=== PATIENT | male | born 1965 | race Caucasian/White ===

== ENCOUNTER 2016-12-28 11:19 | Emergency (ER) | payer BC ==
[2016-12-28 12:01] VITALS: BP 126/74; PULSE 78; RESP 18; TEMP 98; O2SAT 97
--- NOTE | 2016-12-28 12:18 | UCPHY ---
H & P Time Seen by Provider: 12/28/16 11:43 Patient Type: New HPI/ROS: CHIEF COMPLAINT: Sinus congestion, cough, blood in stools HISTORY OF PRESENT ILLNESS: This is a 51-year-old male presents with 2 primary complaints. Patient has been sick for several days with sinus congestion, headache, nasal congestion, runny nose, cough. He states he develops sinus infections quite frequently. No fever. No chest pain or shortness of breath. No ear pain. This morning, he noted blood in his stools. He has had 4 bowel movements this morning, 1st to with blood in the stool and 1 time when he wiped. Last 2 bowel movements were without any blood. Does have a history of diverticulosis as well as a history of diverticulitis and a history of hemorrhoids. He has had no abdominal pain. No vomiting. Feels like his bloody stools may be related to dietary indiscretion as well as a long trip sitting in the car yesterday. No pain with defecation. No fever, chills, chest pain, shortness of breath, palpitations, vomiting, diarrhea, urinary complaints, headache, lightheadedness. REVIEW OF SYSTEMS: Aside from elements discussed in the HPI, a comprehensive 10-point review of systems was reviewed and is negative. 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 He reports sitting in his car for 14 hours yesterday during a long trip. VITAL SIGNS Reviewed by me. GENERAL: Well-developed, well-nourished, resting comfortably in no respiratory distress. Patient looks well. No fever. No complaints of abdominal pain. HEENT: Atraumatic. Eyes: No icterus, no injection. No sinus tenderness to percussion. TMs are clear bilaterally. Mouth: moist mucous membranes. No erythema or lesions. Neck: supple with no adenopathy. No Kernig's or Brudzinski's. No meningitis. LUNGS: Clear to auscultation bilaterally, no wheezes, rhonchi or rales. CARDIAC: Regular rate and rhythm, no rubs, murmurs or gallops. ABDOMEN: Soft, no tenderness, no distension, normal bowel sounds. RECTAL: No hemorrhoids. Nontender. Soft, brown stool on glove. BACK: No CVA tenderness. EXTREMITIES: No trauma. No edema. Range of motion is normal throughout. NEURO: Alert and oriented, grossly nonfocal. SKIN: Warm and dry, no rash. PSYCHIATRIC: Normal mentation, no agitation. Smoking Status: Never smoked Constitutional: Initial Vital Signs Temperature (C) 36.6 C 12/28/16 11:58 Heart Rate 78 12/28/16 11:58 Respiratory Rate 18 12/28/16 11:58 Blood Pressure 126/74 H 12/28/16 11:58 O2 Sat (%) 97 12/28/16 11:58 O2 Delivery Mode Room Air Allergies/Adverse Reactions: erythromycin base Allergy (Verified 12/28/16 11:58) Home Medications: Medication Instructions Recorded Amoxicillin/Clavulanate Pot 875 mg PO BID #14 tab 12/28/16 [Augmentin 875 MG TAB (*)] Medical Decision Making ED Course/Re-evaluation: 51-year-old male presenting with primary complaints of sinus infection. Of note he also notices blood in his stools this morning. Stools positive for occult blood. I discussed these results with the patient. At this point he feels that this is a 1 off. He has no pain, no further bleeding, no abdominal pain, no thrombosed hemorrhoids, no rectal pain, and no melena and thinks this is mostly related to perhaps early diverticulitis or simply prolonged pressure of sitting for 14 hours. He has no history of upper GI symptoms or ulcer. Patient was placed on Augmentin to treat for both a sinus infection as well as treatment for potential diverticulitis. He will be in the [place] area for an additional 2 days and was advised to return to Urgent Care if he is worsening. Differential Diagnosis: Differential diagnosis of the patient's symptom complex was considered including but not limited to viral upper respiratory infection, sinusitis, bacterial sinusitis, viral pharyngitis, strep pharyngitis, bronchitis, bronchospasm, and influenza. Differential for the patient's complaints of bloody stools was considered including but not limited to hemorrhoidal bleeding , rectal bleeding, lower GI bleeding, upper GI bleeding, diverticulitis, fissure. - Data Points Laboratory Results: 12/28/16 12:15 Stool Occult Bld Scrn POSITIVE H (NEGATIVE) Departure - Departure Disposition: Home, Routine, Self-Care Clinical Impression: History of bloody stools, History of diverticulitis Sinusitis Qualifiers: Sinusitis location: unspecified location Chronicity: acute Recurrence: non- recurrent Qualified Code(s): J01.90 - Acute sinusitis, unspecified Condition: Good Instructions: Diverticulitis (ED), Sinusitis (ED), Diverticulitis Diet (ED) Additional Instructions: You been given a prescription of Augmentin to treat your sinusitis. Please take this as directed. This antibiotic will also be helpful in treating for any diverticulitis. Please obtained Flonase nasal spray. This is available [id number]. Use as directed. Sinusitis will not clear significantly without the use of decongestants. Please obtain a [id number] decongestant such as Sudafed. Drink plenty of fluid with this decongestant. Decongestants may keep you awake at night. If you are unable to sleep secondary to nasal congestion, consider trying Afrin nasal spray. Do not use Afrin for more than 3 days. Please take Tylenol or ibuprofen for headache pain and facial pain. Mainstay of therapy will be to drink plenty of fluids, control your symptoms with [id number] medications, and get plenty of rest. Return to Urgent Care or seek care urgently if you're symptoms are worsening despite the above treatment, if you develop shortness of breath, if you're unable to drink fluids secondary to throat pain or other issues, if you developed, vomiting, diarrhea, or other concerns. Referrals: NONE *PRIMARY CARE P,. [Primary Care Provider] - As per Instructions Prescriptions: Amoxicillin/Clavulanate Pot [Augmentin 875 MG TAB (*)] 875 mg PO BID #14 tab - PQRS PQRS Measurement: Not applicable
== END 2016-12-28 12:50 | disposition home or self-care (01) ==
LOC: CED 11:19
DX: J01.90 Acute sinusitis, unspecified (principal); K57.33 Diverticulitis of large intestine without perforation or abscess with bleeding
CPT/HCPCS: 82270-PO; G0463-PO